=== PATIENT | male | born 1995 | race Caucasian/White ===

== ENCOUNTER 2017-07-14 20:36 | Emergency (ER) | payer SELFPAY ==
[2017-07-14 20:43] VITALS: BP 115/70; BMI 19.9
--- NOTE | 2017-07-14 22:50 | DR.GENAD ---
HPI - PCP Primary Care Physician: NFD - HPI Comment HPI Comment: ABSCESS SIZE OF [place] LEFT LATERAL NECK. FLUCTUANT. NOT DRAINING. SIMILAR ABSCESS RIGHT NECK PREVIOUSLY. - Complaint/Symptoms Chief Complaint Doctors Comments: ABSCESS LEFT NECK TIMES 4 DAYS. Chief Complaint:: "I have had this cyst on the left side of my neck now for about 3-4 days now. It hasn't been draining or anything. I have had them in the past on my right side and have went to the doctors office and the ER in [place]. They took blood cultures but I never heard anything back from them." Self Treatment fo Chief Complaint: Patient is using an oitment now prescribed by Al[place]. He also went through a round of antibiotics. - Nurses notes reviewed Nurses Notes Review: Yes - Source History Provided: Patient - Mode of Arrival Mode of Arrival: Ambulatory - Timing Onset of Chief Complaint: 07/10/17 Came on: Suddenly - Duration Duration: Constant Duration: Days - Severity Severity: Moderate PMH - PMH Past Medical History: No Past Surgical History: Yes Surgical History: Appendectomy, Tonsillectomy, Other Past Surgical History Comment: Skin graft to left hand. 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 - Family History History of Family Medical Conditions: Yes Family Medical History: Diabetes Mellitus, Hypertension - Social History Does patient currently use any type of tobacco product: Yes Have you used tobacco products in the last 12 months: Yes Type of Tobacco Use: Cigarettes Does any household member use tobacco: Yes Alcohol Use: None Do you use any recreational Drugs:: Yes (Occasional Marijuana) Lives With: Family Lives Where: Home - infectious screening In the last 2 months have you had wt loss of >10#?: NO Have you had fever, night sweats or hemotysis?: No Have you traveled outside the country in the last 6 months?: No Isolation: Standard ROS - Review of Systems Constitutional: negative: Chills, Fever Eyes: No Symptoms Reported ENTM: No Symptoms Reported Respiratoy: No Symptoms Reported Cardiovascular: No Symptoms Reported Gastrointestinal/Abdominal: No Symptoms Reported Genitourinary: No Symptoms Reported Neurological: No Symptoms Reported Musculoskeletal: Neck Pain (ABSCESS) Integumentary: Other (ABSCESS LT NECK SIZE [place].) Hematologic/Lymphatic: No Symptoms Reported Endocrine: No Symptoms Reported All Other Systems: Reviewed and Negative PE - Vital Signs Vitals: Temperature 98.6 F Pulse Rate 76 Respiratory Rate 20 Blood Pressure 115/70 O2 Sat by Pulse Oximetry 100 - General Limitations: No Limitations General Appearance: Alert - Head Head Exam: Normal Inspection - Eyes Eye exam: Normal Appearance - ENT ENT Exam: Normal External Ear Exam External Ear Exam: Normal External Inspection TM/Canal Exam: Bilateral Normal Nose Exam: Normal Nose Exam Mouth Exam: Normal Inspection Throat Exam: Normal Inspection - Neck Neck Exam: Trachea Midline, Tenderness (ANSCESS LATERAL LEFT NECK TENDER.) - Chest Chest Inspection: Normal Inspection - Respiratory Respiratory Exam: Normal Lung Sounds Bilat Respiratory Exam: Bilateral Clear to Auscultation - Cardiovascular Cardiovascular Exam: Regular Rate, Normal Rhythm, Normal Heart Sounds - Abdominal Exam Abdominal Exam: Normal Bowel Sounds, Soft. negative: Tenderness - Extremities Extremities Exam: Normal Inspection - Back Back Exam: Normal Inspection - Neurologic Neurological Exam: Alert, Oriented X3 - Psychiatric Psychiatric Exam: Normal Affect, Normal Mood - Skin Skin Exam: Erythema (ABSCESS LEFT NECK SIZE [place].) MDM - Additional Information Additional Information Obtained From: Family - Differential Diagnosis Differential Diagnosis: ABSCESS LT NECK, CELLULITIS LEFT NECK. Course - Treatment Treatment: SEE ORDERS. ABSCESS DRAIN IN ED. - Education/Counseling Education/Counseling: Patient, Family, Education Educated On: Treatment, Diagnosis, Needs for Follow Up ROR - Labs Reviewed Laboratory: 07/14/17 23:20 Neck Gram Stain - Final Procedures - Incision and Drainage Blade Size: 11 I & D Procedure: betadine prep, sterile dressing applied, gauze wick placed Progress: ABSCESS CLEAN WITH BETADINE SOLUTION AND INFILTRATE WITH 1% LIDOCAINE. I&D DONE. 20CC PUS DRAINED. IODINE GAUZE PACKING DONE. DRESSING APPLIED. - Diagnosis Discharge Problem: Cellulitis and abscess of neck - Discharge Plan Disposition: HOME, SELF-CARE Condition: Stable Prescriptions: Ibuprofen [MOTRIN TAB 800 MG *] 800 mg PO Q8H PRN #20 tab PRN Reason: Pain/Inflammation Sulfamethoxazole/Trimethoprim [Bactrim 400-80 mg] 1 tab PO Q8H #30 tab Tramadol HCl 50 mg PO Q8H PRN #15 tablet PRN Reason: - Follow ups/Referrals Follow ups/Referrals: NFD,None [Primary Care Provider] - 2 days - Instructions Instructions: Cellulitis, Adult, [id number], Abscess, [id number] Additional Instructions: RETURN TO ED IF WORSE.
[2017-07-14] MEDS ORDERED: BACTRIM DS TAB PO ONE ×2 (23:25→23:28)
[2017-07-14] MEDS ORDERED: ULTRAM PO ONE (23:25)
[2017-07-14] MEDS ORDERED: MOTRIN TAB 800 MG PO ONE ×2 (23:26→23:28)
[2017-07-14] MEDS ORDERED: ULTRAM ONE (23:29)
== END 2017-07-14 23:31 | disposition home or self-care (01) ==
LOC: ER 20:53
PROC: 0W963ZZ Drainage of Neck, Percutaneous Approach (ICD-10-PCS; principal; 2017-07-14)
DX: L02.11 Cutaneous abscess of neck (principal); L03.221 Cellulitis of neck; B95.61 Methicillin susceptible Staphylococcus aureus infection as the cause of diseases classified elsewhere
CPT/HCPCS: 10060; 87070; 87075; 87077; 87186; 87205; 99282

== ENCOUNTER 2017-09-28 10:53 | Emergency (ER) | payer SELFPAY ==
[2017-09-28 11:08] VITALS: BP 126/57; BMI 19.8
--- NOTE | 2017-09-28 11:57 | DR.TOOTHHP ---
HPI - Time Seen Time seen: 11:53 - Primary Care Physician Primary Care Physician: NFD - Complaints Chief Complaint Doctors Comments: Patient admits to recurrent problems with his tooth. He states that he is unable to see a dentist due to lack of insurance. Chief Complaint:: PT C/O TOOTHACHE TO RIGHT LOWER ,, ABD A KNOT TO THE LEFT SIDE OF NECK. Self Treatment fo Chief Complaint: MOTRIN - Source History Provided: Patient - Mode of Arrival Mode of Arrival: Ambulatory - Timing Onset of Chief Complaint: 09/24/17 PMH - PMH Past Medical History: No Past Surgical History: Yes Surgical History: Appendectomy, Tonsillectomy Past Surgical History Comment: LEFT HAND, NERVE TENDON, - Family History History of Family Medical Conditions: Yes Family Medical History: Diabetes Mellitus Family Medical History Comment: MENTAL ILLNESS , HEART , CVA , - Social History Does patient currently use any type of tobacco product: Yes Type of Tobacco Use: Cigarettes Does any household member use tobacco: No Alcohol Use: None Do you use any recreational Drugs:: No Lives With: Family Lives Where: Home - infectious screening In the last 2 months have you had wt loss of >10#?: NO Have you had fever, night sweats or hemotysis?: No Have you traveled outside the country in the last 6 months?: No Isolation: Standard ROS - Review of Systems Eyes: No Symptoms Reported ENTM: No Symptoms Reported Respiratoy: No Symptoms Reported Cardiovascular: No Symptoms Reported Gastrointestinal/Abdominal: No Symptoms Reported Genitourinary: No Symptoms Reported Neurological: No Symptoms Reported Musculoskeletal: No Symptoms Reported Integumentary: Lesions (left jaw) Hematologic/Lymphatic: No Symptoms Reported Endocrine: No Symptoms Reported Psychiatric: No Symptoms Reported All Other Systems: Reviewed and Negative PE - Vital Signs Vitals: Temperature 98.0 F Pulse Rate 65 Respiratory Rate 22 Blood Pressure 126/57 O2 Sat by Pulse Oximetry 100 - General Limitations: No Limitations General Appearance: Alert, In No Apparent Distress - Head Head Exam: Normal Inspection, Atraumatic - Eyes Eye exam: Normal Appearance, PERRL, EOMI - ENT ENT Exam: Other (Tooth #31 with cavity) External Ear Exam: Normal External Inspection TM/Canal Exam: Bilateral Normal Nose Exam: Normal Nose Exam Mouth Exam: Normal Inspection Teeth Exam: Dental Caries (D31) Throat Exam: Normal Inspection - Neck Neck Exam: Normal Inspection - Chest Chest Inspection: Normal Inspection, Symmetric Chest Wall Rise - Respiratory Respiratory Exam: Normal Lung Sounds Bilat, Accessory Muscle Use Respiratory Exam: Bilateral Clear to Auscultation - Cardiovascular Cardiovascular Exam: Regular Rate, Normal Rhythm - Abdominal Exam Abdominal Exam: Normal Inspection, Normal Bowel Sounds Abdominal Tenderness: negative: RUQ, RLQ, LUQ, LLQ, Epigastrium, Suprapubic, Diffuse, Mild, Moderate, Severe, Other - Extremities Extremities Exam: Normal Inspection, Full ROM - Back Back Exam: Normal Inspection - Neurologic Neurological Exam: Alert, Oriented X3, CN II-XII Intact - Psychiatric Psychiatric Exam: Normal Affect - Skin Skin Exam: Warm, Dry, Other (pyoderma of angle of jaw) - Diagnosis Discharge Problem: Chronic dental pain, Pyoderma - Discharge Plan Condition: Stable - Follow ups/Referrals Follow ups/Referrals: NFD,None [Primary Care Provider] - 3 days - Instructions
[2017-09-28] MEDS ORDERED: TORADOL 60 MG VIAL IM ONE (11:59)
[2017-09-28] MEDS ORDERED: TORADOL 60 MG VIAL ONE (12:12)
== END 2017-09-28 12:19 | disposition home or self-care (01) ==
LOC: ER 11:17
DX: K08.89 Other specified disorders of teeth and supporting structures (principal); L08.0 Pyoderma
CPT/HCPCS: 96372; 99282; J1885